=== PATIENT | female | born 1985 | race Two or more races ===

== ENCOUNTER → 2019-02-17 | Outpatient (CLI) | payer OTHER, BC ==
--- NOTE | 2019-02-17 11:55 | ECHOF ---
Referral Reason:R07.89 Other chest pain MEASUREMENTS -------- HEIGHT: 165.1 cm WEIGHT: 89.8 kg BP: RVIDd: 2.6 cm (< 3.3) IVSd: 1.2 cm (0.6 - 1.1) LVIDd: 3.9 cm (3.9 - 5.3) LVPWd: 1.1 cm (0.6 - 1.1) IVSs: 1.5 cm LVIDs: 2.8 cm LVPWs: 1.6 cm LAESV Index (A-L): 21.31 ml/m Ao Diam: 2.8 cm (2.0 - 3.7) AV Cusp: 1.9 cm (1.5 - 2.6) LA Diam: 2.9 cm (2.7 - 3.8) MV EXCURSION: 15.510 mm (> 18.000) MV EF SLOPE: 107 mm/s (70 - 150) EPSS: 0.5 cm MV E Robert: 0.98 m/s MV DecT: 186 ms MV A Robert: 0.65 m/s MV E/A Ratio: 1.51 RAP: 5.00 mmHg RVSP: 21.84 mmHg FINDINGS -------- Sinus rhythm. This was a technically good study. The left ventricular size is normal. There is borderline concentric left ventricular hypertrophy. There is normal global left ventricular contractility. Overall left ventricular systolic function is normal with, an EF between 55 - 60 %. The diastolic filling pattern is normal for the age of the patient 6.07. The right ventricle is normal in size. Normal LA size by volume 22+/-6 ml/m2. The right atrial size is normal. Interatrial and interventricular septum intact. The aortic valve is trileaflet and appears structurally normal. There is no evidence of aortic regu rgitation. There is no evidence of aortic stenosis. The mitral valve is normal. There is trace mitral regurgitation. Trace tricuspid regurgitation present. There is no evidence of pulmonary hypertension. The right ventricular systolic pressure, as measured by Doppler, is 21.84mmHg. Trace/mild (physiologic) pulmonic regurgitation. The aortic root size is normal. Normal inferior vena cava with normal inspiratory collapse consistent with estimated right atrial pre ssure of 5 mmHg. There is no pericardial effusion. CONCLUSIONS -------- 1. Sinus rhythm. 2. This was a technically good study. 3. The left ventricular size is normal. 4. There is borderline concentric left ventricular hypertrophy. 5. There is normal global left ventricular contractility. 6. Overall left ventricular systolic function is normal with, an EF between 55 - 60 %. 7. The diastolic filling pattern is normal for the age of the patient 6.07 8. The right ventricle is normal in size. 9. Normal LA size by volume 22+/-6 ml/m2. 10. The right atrial size is normal. 11. Interatrial and interventricular septum intact. 12. The aortic valve is trileaflet and appears structurally normal. 13. There is no evidence of aortic regurgitation. 14. There is no evidence of aortic stenosis. 15. The mitral valve is normal. 16. There is trace mitral regurgitation. 17. Trace tricuspid regurgitation present. 18. There is no evidence of pulmonary hypertension. 19. The right ventricular systolic pressure, as measured by Doppler, is 21.84mmHg. 20. Trace/mild (physiologic) pulmonic regurgitation. 21. The aortic root size is normal. 22. Normal inferior vena cava with normal inspiratory collapse consistent with estimated right atrial pressure of 5 mmHg. 23. There is no pericardial effusion. PRESSER ALL AROUND: Francesca Diego RDCS
--- NOTE | 2019-02-22 08:29 | EST ---
EXERCISE STRESS AGE: 33 SEX: F HT: 65" WT: 198 PROTOCOL: Jose Stress Test STAGE: III DURATION OF EXERCISE: 9:00 HEART RATE REST: 68 BLOOD PRESSURE REST: 118/77 MAXIMUM HEART RATE ACHIEVED: 164 MAXIMUM BLOOD PRESSURE: 187/76 85% MPHR: 158 100% MPHR: 186 METS: 10.5 INDICATIONS: Difficulty in breathing. CLINICAL INFORMATION: Baseline EKG revealed normal sinus rhythm without significant ST-T changes. Patient walked on standard Jose protocol for 9 minutes achieved a maximal heart rate of 164 beats per minute which is more than 85% of predicted maximal. Rare PVCs were noted. The patient developed fatigue and shortness of breath but there was no angina or arrhythmia. EKG did not reveal any ST-segment changes to indicate ischemia. Patient did not have any angina. By EKG criteria, this is a negative stress test with fair exercise capacity. There was no evidence of any angina or arrhythmia. Rare isolated PVCs were noted in the initial part of the stress test, but with exercise, the PVCs resolved. Negative stress test by EKG criteria. [email or web address] / IJN: [id number] /
== END | disposition home or self-care (01) ==
LOC: RADNMMAIN 08:32
PROVIDERS: ATTEND Family Medicine
DX: R07.89 Other chest pain (principal); I51.7 Cardiomegaly
CPT/HCPCS: 93017; 93306

== ENCOUNTER → 2023-11-01 | Outpatient (CLI) | payer BC ==
--- NOTE | 2023-11-01 16:42 | US ---
EXAMINATION TYPE: US transvaginal DATE OF EXAM: 11/01/2023 COMPARISON: NONE CLINICAL INDICATION: Female, 38 years old with history of R10.2 PELVIC PAIN N92.1 EXCESSIVE MENSTRUA TION; heavy prolonged menses TECHNIQUE: Transvaginal (TV Transvaginal sonographic images were medically necessary to better asses s the following anatomy: Date of LMP: 10/27/2023 EXAM MEASUREMENTS: Uterus: 7.2x4.4x4.8 cm Endometrial Stripe: 0.6 cm Right Ovary: 2.2x2.6x1.4 cm Left Ovary: 3.0x1.9x2.2 cm 1. Uterus: Retroverted wnl 2. Endometrium: wnl 3. Right Ovary: wnl 4. Left Ovary: wnl 5. Bilateral Adnexa: Obscured by overlying bowel gas 6. Posterior cul-de-sac: free fluid noted extending from area adjacent to left ovary likely physiolo gic. exam limited by bowel gas and position of uterus IMPRESSION: 1. No evidence for acute process. 2. Endometrium within normal limits for thickness. 3. Retroverted uterus.
== END | disposition home or self-care (01) ==
LOC: RADUSWWP 15:50
PROVIDERS: ATTEND Family Medicine
DX: N85.4 Malposition of uterus (principal); N92.1 Excessive and frequent menstruation with irregular cycle
CPT/HCPCS: 76830